=== PATIENT | female | born 1985 | race Native Hawaiian/Other Pacific Islander ===

== ENCOUNTER 2016-09-13 19:12 | Emergency (ER) | payer OTHER ==
[~2016-09-13] VITALS: Ht 160 cm; Wt 93.0 kg
[2016-09-13 21:18] LABS: PLATELET COUNT 331 K/uL (152-353)
[2016-09-13 21:23] LABS: POTASSIUM 3.7 mmol/L (3.6-5.2); SODIUM 141 mmol/L (136-145)
[2016-09-13 21:47] VITALS: BP 127/89; TEMP 98.1
== END 2016-09-13 21:49 | disposition home or self-care (01) ==
LOC: ED 19:12
DX: G43.809 Other migraine, not intractable, without status migrainosus (principal); H60.8X3 Other otitis externa, bilateral
CPT/HCPCS: 36415; 80053; 85027; 96365; 96374; 96375; 99284; J1100; J1200; J1885; J2550